=== PATIENT | male | born 1950 | race Asian ===

== ENCOUNTER 2017-05-11 16:40 | Inpatient (IN) | payer MEDICARE, OTHER ==
[~2017-05-11] VITALS: Ht 165.1 cm; Wt 65.8 kg
[2017-05-11 16:30] VITALS: BP 151/75
[2017-05-11] MEDS ORDERED: ACETAMINOPHEN 325 MG TABLET PO PRN (18:45)
[2017-05-11] MEDS ORDERED: DEXTROSE 50%-WATER 25 GM/50 ML SYRINGE IVP PRN (19:15)
[2017-05-11] MEDS ORDERED: ONDANSETRON HCL 4 MG TABLET PO PRN (19:15)
[2017-05-11] MEDS ORDERED: PNEUMOCOCCAL VACCINE POLYVALENT 0.5 ML VIAL [PPSV23] IM ONE (20:30)
[2017-05-11] MEDS ORDERED: SENNA 187 MG TABLET PO SCH (21:00)
[2017-05-11 21:37] VITALS: BP 113/60
[2017-05-11 21:42] LABS: APPEARANCE,URINE CLEAR (CLEAR); GLUCOSE, URINE (UA) >=1000 mg/dL (NEGATIVE); KETONES,URINE 15 mg/dL (NEGATIVE); LEUKOCYTE ESTERASE ,URINE NEGATIVE (NEGATIVE); OCCULT BLOOD,URINE NEGATIVE (NEGATIVE); PROTEIN,URINE SEE CONFIRM (NEGATIVE)
[2017-05-11 21:43] LABS: ADD UA MICROSCOPIC YES
[2017-05-11] MEDS: HEPARIN SODIUM,PORCINE 5,000 UNITS/ML VIAL SQ SCH (21:46)
[2017-05-11] MEDS: ATORVASTATIN CALCIUM 40 MG TABLET PO SCH (21:46)
[2017-05-11] MEDS: DOCUSATE SODIUM 100 MG CAPSULE PO SCH (21:46)
[2017-05-11] MEDS: ENALAPRIL MALEATE 5 MG TABLET PO SCH (21:46)
[2017-05-11 21:52] LABS: GLUCOSE COMMENT 1 Received Meds; GLUCOSE,POINT OF CARE 300 MG/DL (70-110)
[2017-05-11 21:53] LABS: SQUAMOUS EPITHELIAL CELL,UR Few /LPF (None Seen)
[2017-05-11 21:55] LABS: RBC,URINE 0-2 /HPF (0-2)
[2017-05-11 21:56] LABS: SULFOSALICYLIC ACID,URINE 1+ (Negative)
[2017-05-11] MEDS: INSULIN ASPART 100 UNITS/ML SQ PRN (21:59)
[2017-05-12 00:11] VITALS: BP 117/57
[2017-05-12] MEDS: DOCUSATE SODIUM 283 MG/5 ML MINI-ENEMA PR PRN (05:09)
[2017-05-12 07:33] LABS: BASOPHILS % (AUTO) 0.2 % (0.0-2.0); EOSINOPHILS % (AUTO) 1.1 % (1.0-6.0); HEMATOCRIT 46.9 % (41-53); HEMOGLOBIN 16.3 g/dL (13.5-17.5); LYMPHOCYTES # (AUTO) 1.6 K/uL (1.0-4.8); LYMPHOCYTES % (AUTO) 19.6 % (22.0-44.0); MEAN CORPUSCULAR HEMOGLOBIN 30.5 pg (26.0-34.0); MEAN CORPUSCULAR HGB CONC 34.7 G/dL (31.0-37.0); MEAN CORPUSCULAR VOLUME 88 fL (80-100); MONOCYTES # (AUTO) 0.6 K/uL (0.1-1.0); MONOCYTES % (AUTO) 6.7 % (2.0-9.0); NEUTROPHILS # (AUTO) 6.1 K/uL (1.8-7.7); NEUTROPHILS % (AUTO) 72.4 % (40.0-70.0); PLATELET COUNT (AUTO) 245 K/uL (150-450); RED BLOOD CELL COUNT(AUTO) 5.34 MIL/uL (4.50-5.90); RED CELL DISTRIBUTION WIDTH 13.6 % (11.5-14.5); WHITE BLOOD COUNT (AUTO) 8.4 K/uL (4.5-11.0)
[2017-05-12 08:07] LABS: ALBUMIN 3.8 g/dL (3.4-5.0); CALCIUM, TOTAL 8.8 mg/dL (8.8-10.5); CREATININE 1.56 mg/dL (0.60-1.30); POTASSIUM 4.1 mmol/L (3.5-5.1); TOTAL PROTEIN, SERUM 7.2 g/dL (6.4-8.2)
[2017-05-12 08:12] VITALS: BP 191/96
[2017-05-12] MEDS: GlyBURIDE 5 MG TABLET PO SCH (08:23)
[2017-05-12] MEDS: ENALAPRIL MALEATE 5 MG TABLET PO SCH ×2 (08:23→21:26)
[2017-05-12] MEDS: CLOPIDOGREL BISULFATE 75 MG TABLET PO SCH (08:54)
[2017-05-12] MEDS: ASPIRIN 81 MG CHEWABLE TABLET PO SCH (08:54)
[2017-05-12] MEDS: HEPARIN SODIUM,PORCINE 5,000 UNITS/ML VIAL SQ SCH ×2 (08:54→21:25)
[2017-05-12] MEDS: INSULIN DETEMIR 100 UNITS/ML SQ SCH (08:56)
[2017-05-12 09:30] VITALS: BP 160/96
[2017-05-12] MEDS: HydrALAZINE HCL 25 MG TABLET PO PRN (09:57)
[2017-05-12] MEDS: DOCUSATE SODIUM 100 MG CAPSULE PO SCH ×2 (10:06→21:25)
[2017-05-12] MEDS: INSULIN ASPART 100 UNITS/ML SQ PRN ×4 (10:10→21:37)
[2017-05-12 12:48] LABS: GLUCOSE,POINT OF CARE 210 MG/DL (70-110)
[2017-05-12 12:48] LABS: GLUCOSE,POINT OF CARE 324 MG/DL (70-110)
[2017-05-12 15:49] VITALS: BP 144/76
[2017-05-12 16:26] VITALS: BP 131/65
[2017-05-12 17:33] LABS: GLUCOSE COMMENT 1 Received Meds; GLUCOSE,POINT OF CARE 182 MG/DL (70-110)
[2017-05-12 21:24] VITALS: BP 133/67
[2017-05-12] MEDS: ATORVASTATIN CALCIUM 40 MG TABLET PO SCH (21:25)
[2017-05-12] MEDS: SENNA 187 MG TABLET PO SCH (21:26)
[2017-05-12 21:43] LABS: GLUCOSE,POINT OF CARE 205 MG/DL (70-110)
[2017-05-13] VITALS (8 sets, daily range): BP systolic 131–177; BP diastolic 70–92
[2017-05-13] MEDS: HydrALAZINE HCL 25 MG TABLET PO PRN (05:03)
[2017-05-13 06:03] LABS: GLUCOSE,POINT OF CARE 187 MG/DL (70-110)
[2017-05-13] MEDS: GlyBURIDE 5 MG TABLET PO SCH (07:50)
[2017-05-13] MEDS: INSULIN ASPART 100 UNITS/ML SQ PRN ×4 (07:52→21:18)
[2017-05-13] MEDS: CLOPIDOGREL BISULFATE 75 MG TABLET PO SCH (08:52)
[2017-05-13] MEDS: ENALAPRIL MALEATE 5 MG TABLET PO SCH ×3 (08:52→21:02)
[2017-05-13] MEDS: DOCUSATE SODIUM 100 MG CAPSULE PO SCH ×2 (08:53→21:02)
[2017-05-13] MEDS: HEPARIN SODIUM,PORCINE 5,000 UNITS/ML VIAL SQ SCH ×2 (08:53→20:56)
[2017-05-13] MEDS: INSULIN DETEMIR 100 UNITS/ML SQ SCH (08:55)
[2017-05-13] MEDS: DOCUSATE SODIUM 283 MG/5 ML MINI-ENEMA PR PRN (09:03)
[2017-05-13] MEDS: ASPIRIN 81 MG CHEWABLE TABLET PO SCH (09:03)
[2017-05-13 17:24] LABS: GLUCOSE,POINT OF CARE 179 MG/DL (70-110)
[2017-05-13 17:55] LABS: GLUCOSE COMMENT 1 Received Meds; GLUCOSE,POINT OF CARE 244 MG/DL (70-110)
[2017-05-13] MEDS ORDERED: PANTOPRAZOLE SODIUM 40 MG DR TABLET PO ONE (20:45)
[2017-05-13] MEDS: SENNA 187 MG TABLET PO SCH (21:02)
[2017-05-13] MEDS: ATORVASTATIN CALCIUM 40 MG TABLET PO SCH (21:02)
[2017-05-13] MEDS: BACLOFEN 10 MG TABLET PO PRN (21:12)
[2017-05-13 23:59] LABS: GLUCOSE COMMENT 1 Received Meds; GLUCOSE,POINT OF CARE 194 MG/DL (70-110)
[2017-05-14] VITALS (8 sets, daily range): BP systolic 134–179; BP diastolic 59–92
[2017-05-14] MEDS: BACLOFEN 10 MG TABLET PO PRN ×2 (03:55→13:12)
[2017-05-14] MEDS: DOCUSATE SODIUM 283 MG/5 ML MINI-ENEMA PR PRN (05:55)
[2017-05-14 06:26] LABS: GLUCOSE,POINT OF CARE 175 MG/DL (70-110)
[2017-05-14] MEDS ORDERED: MetFORMIN HCL 850 MG TABLET PO SCH (07:30)
[2017-05-14] MEDS: MetFORMIN HCL 500 MG TABLET PO SCH ×2 (07:32→16:22)
[2017-05-14] MEDS: GlyBURIDE 5 MG TABLET PO SCH (07:32)
[2017-05-14] MEDS: INSULIN ASPART 100 UNITS/ML SQ PRN ×4 (07:36→21:28)
[2017-05-14] MEDS: DOCUSATE SODIUM 100 MG CAPSULE PO SCH ×2 (08:10→21:10)
[2017-05-14] MEDS: CLOPIDOGREL BISULFATE 75 MG TABLET PO SCH (08:11)
[2017-05-14] MEDS: PANTOPRAZOLE SODIUM 40 MG DR TABLET PO SCH (08:11)
[2017-05-14] MEDS: ENALAPRIL MALEATE 5 MG TABLET PO SCH ×3 (08:11→21:10)
[2017-05-14] MEDS: ASPIRIN 81 MG CHEWABLE TABLET PO SCH (08:11)
[2017-05-14] MEDS: HEPARIN SODIUM,PORCINE 5,000 UNITS/ML VIAL SQ SCH ×2 (08:45→21:10)
[2017-05-14] MEDS: INSULIN DETEMIR 100 UNITS/ML SQ SCH (08:47)
[2017-05-14] MEDS: HYDROCHLOROTHIAZIDE 25 MG TABLET PO SCH (10:04)
[2017-05-14 12:09] LABS: GLUCOSE,POINT OF CARE 153 MG/DL (70-110)
[2017-05-14 18:02] LABS: GLUCOSE COMMENT 1 Received Meds; GLUCOSE,POINT OF CARE 170 MG/DL (70-110)
[2017-05-14] MEDS: SENNA 187 MG TABLET PO SCH (21:10)
[2017-05-14] MEDS: ATORVASTATIN CALCIUM 40 MG TABLET PO SCH (21:10)
[2017-05-14 21:58] LABS: GLUCOSE COMMENT 1 Received Meds; GLUCOSE,POINT OF CARE 175 MG/DL (70-110)
[2017-05-15 00:33] VITALS: BP 135/77
[2017-05-15] MEDS: BACLOFEN 10 MG TABLET PO PRN ×3 (02:36→19:44)
[2017-05-15] MEDS ORDERED: METF850T2 PO (04:57)
[2017-05-15] MEDS ORDERED: GLYB5 PO (04:57)
[2017-05-15] MEDS ORDERED: ASPI-1182 PO (05:00)
[2017-05-15] MEDS ORDERED: ENAL5 PO ×2 (05:00→06:59)
[2017-05-15 06:08] LABS: GLUCOSE,POINT OF CARE 139 MG/DL (70-110)
[2017-05-15 07:30] VITALS: BP 167/78
[2017-05-15] MEDS: INSULIN ASPART 100 UNITS/ML SQ PRN ×2 (08:07→17:56)
[2017-05-15] MEDS: GlyBURIDE 5 MG TABLET PO SCH (08:08)
[2017-05-15] MEDS: MetFORMIN HCL 500 MG TABLET PO SCH ×2 (08:09→16:28)
[2017-05-15] MEDS: ENALAPRIL MALEATE 5 MG TABLET PO SCH ×3 (08:11→21:21)
[2017-05-15] MEDS: DOCUSATE SODIUM 100 MG CAPSULE PO SCH ×2 (09:20→21:21)
[2017-05-15] MEDS: PANTOPRAZOLE SODIUM 40 MG DR TABLET PO SCH (09:20)
[2017-05-15] MEDS: CLOPIDOGREL BISULFATE 75 MG TABLET PO SCH (09:20)
[2017-05-15] MEDS: HYDROCHLOROTHIAZIDE 25 MG TABLET PO SCH (09:20)
[2017-05-15] MEDS: ASPIRIN 81 MG CHEWABLE TABLET PO SCH (09:20)
[2017-05-15] MEDS: HEPARIN SODIUM,PORCINE 5,000 UNITS/ML VIAL SQ SCH ×2 (09:20→21:20)
[2017-05-15] MEDS: INSULIN DETEMIR 100 UNITS/ML SQ SCH (09:21)
[2017-05-15 11:00] VITALS: BP 155/78
[2017-05-15 16:22] VITALS: BP 154/75
[2017-05-15 20:34] VITALS: BP 139/82
[2017-05-15 21:14] VITALS: BP 143/62
[2017-05-15] MEDS: ATORVASTATIN CALCIUM 40 MG TABLET PO SCH (21:21)
[2017-05-15] MEDS: SENNA 187 MG TABLET PO SCH (21:21)
[2017-05-16 00:10] LABS: GLUCOSE COMMENT 1 Received Meds; GLUCOSE,POINT OF CARE 146 MG/DL (70-110)
[2017-05-16 00:14] LABS: GLUCOSE,POINT OF CARE 101 MG/DL (70-110)
[2017-05-16 00:22] VITALS: BP 130/67
[2017-05-16 06:13] LABS: GLUCOSE,POINT OF CARE 105 MG/DL (70-110)
[2017-05-16 07:22] VITALS: BP 151/78
[2017-05-16] MEDS: BACLOFEN 10 MG TABLET PO PRN ×2 (07:27→20:29)
[2017-05-16] MEDS: GlyBURIDE 5 MG TABLET PO SCH (07:27)
[2017-05-16] MEDS: MetFORMIN HCL 500 MG TABLET PO SCH ×2 (07:27→16:35)
[2017-05-16 07:43] LABS: CREATININE 1.21 mg/dL (0.60-1.30); POTASSIUM 4.1 mmol/L (3.5-5.1)
[2017-05-16] MEDS: ASPIRIN 81 MG CHEWABLE TABLET PO SCH (08:05)
[2017-05-16] MEDS: HEPARIN SODIUM,PORCINE 5,000 UNITS/ML VIAL SQ SCH ×2 (08:05→20:30)
[2017-05-16] MEDS: DOCUSATE SODIUM 250 MG CAPSULE PO SCH ×2 (08:05→20:29)
[2017-05-16] MEDS: PANTOPRAZOLE SODIUM 40 MG DR TABLET PO SCH (08:05)
[2017-05-16] MEDS: ENALAPRIL MALEATE 5 MG TABLET PO SCH ×3 (08:05→20:34)
[2017-05-16] MEDS: CLOPIDOGREL BISULFATE 75 MG TABLET PO SCH (08:05)
[2017-05-16] MEDS: HydrALAZINE HCL 25 MG TABLET PO PRN (08:05)
[2017-05-16] MEDS: INSULIN DETEMIR 100 UNITS/ML SQ SCH (08:11)
[2017-05-16] MEDS: HYDROCHLOROTHIAZIDE 25 MG TABLET PO SCH (08:12)
[2017-05-16 09:20] VITALS: BP 146/64
[2017-05-16] MEDS: INSULIN ASPART 100 UNITS/ML SQ PRN ×2 (13:31→17:38)
[2017-05-16 16:33] VITALS: BP 133/64
[2017-05-16 17:42] LABS: GLUCOSE COMMENT 1 Received Meds; GLUCOSE,POINT OF CARE 141 MG/DL (70-110)
[2017-05-16] MEDS: SENNA 187 MG TABLET PO SCH (20:29)
[2017-05-16] MEDS: ATORVASTATIN CALCIUM 40 MG TABLET PO SCH (20:29)
[2017-05-16 20:34] VITALS: BP 145/73
[2017-05-16 22:32] LABS: GLUCOSE COMMENT 1 Juice/Food/D50 Given; GLUCOSE,POINT OF CARE 87 MG/DL (70-110)
[2017-05-17 00:45] VITALS: BP 141/78
[2017-05-17 05:13] LABS: GLUCOSE,POINT OF CARE 132 MG/DL (70-110)
[2017-05-17 05:13] LABS: GLUCOSE,POINT OF CARE 102 MG/DL (70-110)
[2017-05-17] MEDS: BACLOFEN 10 MG TABLET PO PRN ×2 (05:23→21:52)
[2017-05-17 06:18] LABS: GLUCOSE,POINT OF CARE 94 MG/DL (70-110)
[2017-05-17 07:28] VITALS: BP 146/83
[2017-05-17] MEDS: MetFORMIN HCL 500 MG TABLET PO SCH ×2 (07:29→17:13)
[2017-05-17] MEDS: GlyBURIDE 5 MG TABLET PO SCH (07:30)
[2017-05-17] MEDS: ASPIRIN 81 MG CHEWABLE TABLET PO SCH (08:12)
[2017-05-17] MEDS: DOCUSATE SODIUM 250 MG CAPSULE PO SCH ×2 (08:12→21:51)
[2017-05-17] MEDS: PANTOPRAZOLE SODIUM 40 MG DR TABLET PO SCH (08:12)
[2017-05-17] MEDS: ENALAPRIL MALEATE 5 MG TABLET PO SCH ×3 (08:12→21:51)
[2017-05-17] MEDS: CLOPIDOGREL BISULFATE 75 MG TABLET PO SCH (08:12)
[2017-05-17] MEDS: HEPARIN SODIUM,PORCINE 5,000 UNITS/ML VIAL SQ SCH ×2 (08:12→21:51)
[2017-05-17] MEDS: HYDROCHLOROTHIAZIDE 25 MG TABLET PO SCH (08:12)
[2017-05-17] MEDS: INSULIN DETEMIR 100 UNITS/ML SQ SCH (08:13)
[2017-05-17] MEDS: INSULIN ASPART 100 UNITS/ML SQ PRN ×2 (12:51→18:03)
[2017-05-17 13:42] LABS: GLUCOSE,POINT OF CARE 144 MG/DL (70-110)
[2017-05-17 15:15] VITALS: BP 133/78
[2017-05-17 18:23] LABS: GLUCOSE,POINT OF CARE 155 MG/DL (70-110)
[2017-05-17 21:49] VITALS: BP 148/83
[2017-05-17] MEDS: SENNA 187 MG TABLET PO SCH (21:51)
[2017-05-17] MEDS: ATORVASTATIN CALCIUM 40 MG TABLET PO SCH (21:51)
[2017-05-17 23:16] VITALS: BP 139/79
[2017-05-17 23:27] LABS: GLUCOSE,POINT OF CARE 97 MG/DL (70-110)
[2017-05-18 06:40] LABS: GLUCOSE,POINT OF CARE 133 MG/DL (70-110)
[2017-05-18 07:07] VITALS: BP 149/74
[2017-05-18] MEDS: DOCUSATE SODIUM 250 MG CAPSULE PO SCH ×2 (08:01→20:29)
[2017-05-18] MEDS: CLOPIDOGREL BISULFATE 75 MG TABLET PO SCH (08:01)
[2017-05-18] MEDS: HYDROCHLOROTHIAZIDE 25 MG TABLET PO SCH (08:01)
[2017-05-18] MEDS: PANTOPRAZOLE SODIUM 40 MG DR TABLET PO SCH (08:01)
[2017-05-18] MEDS: BACLOFEN 10 MG TABLET PO PRN ×2 (08:02→15:20)
[2017-05-18] MEDS: ASPIRIN 81 MG CHEWABLE TABLET PO SCH (08:02)
[2017-05-18] MEDS: GlyBURIDE 5 MG TABLET PO SCH (08:03)
[2017-05-18] MEDS: MetFORMIN HCL 500 MG TABLET PO SCH ×2 (08:03→17:06)
[2017-05-18] MEDS: ENALAPRIL MALEATE 5 MG TABLET PO SCH ×3 (08:03→20:30)
[2017-05-18] MEDS: HEPARIN SODIUM,PORCINE 5,000 UNITS/ML VIAL SQ SCH ×2 (08:03→20:29)
[2017-05-18] MEDS: INSULIN DETEMIR 100 UNITS/ML SQ SCH (08:10)
[2017-05-18 15:17] VITALS: BP 137/66
[2017-05-18 17:12] LABS: GLUCOSE,POINT OF CARE 112 MG/DL (70-110)
[2017-05-18 17:13] LABS: GLUCOSE,POINT OF CARE 98 MG/DL (70-110)
[2017-05-18 20:22] VITALS: BP 113/54
[2017-05-18] MEDS: ATORVASTATIN CALCIUM 40 MG TABLET PO SCH (20:29)
[2017-05-18] MEDS: SENNA 187 MG TABLET PO SCH (20:29)
[2017-05-18] MEDS: INSULIN ASPART 100 UNITS/ML SQ PRN (21:16)
[2017-05-18 21:33] LABS: GLUCOSE,POINT OF CARE 131 MG/DL (70-110)
[2017-05-18 23:21] VITALS: BP 156/75
[2017-05-19] MEDS: BACLOFEN 10 MG TABLET PO PRN ×4 (00:41→22:08)
[2017-05-19 05:58] LABS: GLUCOSE,POINT OF CARE 108 MG/DL (70-110)
[2017-05-19] MEDS ORDERED: CLOP75 PO (07:01)
[2017-05-19] MEDS ORDERED: INSNOV SQ (07:01)
[2017-05-19] MEDS ORDERED: ATOR40TA28 PO (07:01)
[2017-05-19] MEDS ORDERED: DSS100 PO (07:01)
[2017-05-19] MEDS ORDERED: PANT40TA25 PO (07:01)
[2017-05-19] MEDS ORDERED: HYDR25TA PO (07:01)
[2017-05-19] MEDS ORDERED: INSU100V12 SQ (07:01)
[2017-05-19 08:00] VITALS: BP 144/78
[2017-05-19] MEDS: ASPIRIN 81 MG CHEWABLE TABLET PO SCH (08:14)
[2017-05-19] MEDS: HYDROCHLOROTHIAZIDE 25 MG TABLET PO SCH (08:14)
[2017-05-19] MEDS: DOCUSATE SODIUM 250 MG CAPSULE PO SCH ×2 (08:14→20:06)
[2017-05-19] MEDS: GlyBURIDE 5 MG TABLET PO SCH (08:14)
[2017-05-19] MEDS: MetFORMIN HCL 500 MG TABLET PO SCH ×2 (08:14→16:53)
[2017-05-19] MEDS: CLOPIDOGREL BISULFATE 75 MG TABLET PO SCH (08:14)
[2017-05-19] MEDS: PANTOPRAZOLE SODIUM 40 MG DR TABLET PO SCH (08:14)
[2017-05-19] MEDS: HEPARIN SODIUM,PORCINE 5,000 UNITS/ML VIAL SQ SCH ×2 (08:15→20:06)
[2017-05-19] MEDS: ENALAPRIL MALEATE 5 MG TABLET PO SCH ×3 (08:15→20:06)
[2017-05-19] MEDS: INSULIN DETEMIR 100 UNITS/ML SQ SCH (08:18)
[2017-05-19] MEDS: INSULIN ASPART 100 UNITS/ML SQ PRN ×2 (12:39→20:25)
[2017-05-19 15:23] VITALS: BP 136/57
[2017-05-19 17:33] LABS: GLUCOSE,POINT OF CARE 101 MG/DL (70-110)
[2017-05-19 20:04] VITALS: BP 127/67
[2017-05-19] MEDS: SENNA 187 MG TABLET PO SCH (20:06)
[2017-05-19] MEDS: ATORVASTATIN CALCIUM 40 MG TABLET PO SCH (20:06)
[2017-05-19 22:57] LABS: GLUCOSE COMMENT 1 Received Meds; GLUCOSE,POINT OF CARE 153 MG/DL (70-110)
[2017-05-19 23:28] VITALS: BP 157/79
[2017-05-20] MEDS: BACLOFEN 10 MG TABLET PO PRN ×2 (04:59→11:23)
[2017-05-20 05:30] VITALS: BP 135/71
[2017-05-20 05:53] LABS: GLUCOSE,POINT OF CARE 97 MG/DL (70-110)
[2017-05-20 05:53] LABS: GLUCOSE,POINT OF CARE 178 MG/DL (70-110)
[2017-05-20 07:03] VITALS: BP 146/70
[2017-05-20] MEDS: MetFORMIN HCL 500 MG TABLET PO SCH (07:26)
[2017-05-20] MEDS: GlyBURIDE 5 MG TABLET PO SCH (07:26)
[2017-05-20] MEDS: INSULIN DETEMIR 100 UNITS/ML SQ SCH (08:42)
[2017-05-20] MEDS: ENALAPRIL MALEATE 5 MG TABLET PO SCH (08:43)
[2017-05-20] MEDS: PANTOPRAZOLE SODIUM 40 MG DR TABLET PO SCH (08:43)
[2017-05-20] MEDS: DOCUSATE SODIUM 250 MG CAPSULE PO SCH (08:43)
[2017-05-20] MEDS: HYDROCHLOROTHIAZIDE 25 MG TABLET PO SCH (08:43)
[2017-05-20] MEDS: CLOPIDOGREL BISULFATE 75 MG TABLET PO SCH (08:43)
[2017-05-20] MEDS: ASPIRIN 81 MG CHEWABLE TABLET PO SCH (08:43)
[2017-05-20] MEDS: HEPARIN SODIUM,PORCINE 5,000 UNITS/ML VIAL SQ SCH (08:44)
[2017-05-20] MEDS ORDERED: BACL10TA PO (12:32)
[2017-05-20 12:33] LABS: GLUCOSE,POINT OF CARE 78 MG/DL (70-110)
[2017-05-20] MEDS ORDERED: METF500T4 PO (12:33)
[2017-05-20 21:43] LABS: GLUCOSE,POINT OF CARE 122 MG/DL (70-110)
[2017-05-20 21:43] LABS: GLUCOSE,POINT OF CARE 88 MG/DL (70-110)
== END 2017-05-20 13:40 | disposition home or self-care (01) | DRG 64 ==
LOC: 2WR 18:20
PROVIDERS: ADMIT Physical Medicine & Rehabilitation; ATTEND Physical Medicine & Rehabilitation
PROC: 3E0234Z Introduction of Serum, Toxoid and Vaccine into Muscle, Percutaneous Approach (ICD-10-PCS; principal; 2017-05-11)
DX: I63.9 Cerebral infarction, unspecified (principal); I77.74 Dissection of vertebral artery; E11.9 Type 2 diabetes mellitus without complications; I10 Essential (primary) hypertension; I65.29 Occlusion and stenosis of unspecified carotid artery; E78.00 Pure hypercholesterolemia, unspecified; I25.10 Atherosclerotic heart disease of native coronary artery without angina pectoris; Z86.73 Personal history of transient ischemic attack (TIA), and cerebral infarction without residual deficits; Z23 Encounter for immunization
CPT/HCPCS: 82962; 87081; 87086; 90471; 92507; 92508; 92523; 97110; 97112; 97116; 97150; 97162; 97166; 97530; 97535; 99366; J1644; Q0162